=== PATIENT | female | born 1945 | race American Indian/Alaskan Native ===

== ENCOUNTER 2021-09-12 11:12 | Emergency (ER) | payer MEDICARE ==
[2021-09-12] MEDS ORDERED: ACETAMINOPHEN 500 MG TAB PO STA (11:42)
[2021-09-12] MEDS ORDERED: ASPIRIN 81 MG TAB CHEW PO ONE (11:42)
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
[2021-09-12 12:21] LABS: Hematocrit 39.5 % (30.3-42.9); Hemoglobin 12.8 gm/dl (10.1-14.3); Mean Corpuscular HGB Conc 32 % (30-34); Mean Corpuscular Volume 82 fl (79-97); Platelet Count 284 K/mm3 (140-440); Red Blood Count 4.82 M/mm3 (3.65-5.03); Red Cell Distribution Width 13.8 % (13.2-15.2)
--- NOTE | 2021-09-12 12:43 | XRay Report ---
XR chest routine 2V INDICATION / CLINICAL INFORMATION: chest pain. COMPARISON: None available. FINDINGS: SUPPORT DEVICES: None. HEART /PULMONARY VASCULATURE: No significant abnormality. LUNGS / PLEURA: No significant pulmonary or pleural abnormality. No pneumothorax. ADDITIONAL FINDINGS: No significant additional findings. IMPRESSION: 1. No acute findings. Signer Name: Link Faust MD Signed: 09/12/2021 12:38 PM Workstation Name: [id number]
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
[2021-09-12 13:12] LABS: Alanine Aminotransferase 13 units/L (7-56); Albumin 4.4 g/dL (3.9-5); Blood Urea Nitrogen 6 mg/dL (7-17); Calcium 9.3 mg/dL (8.4-10.2); Hemolysis Index 9
[2021-09-12] MEDS ORDERED: FAMOTIDINE 20 MG TAB PO ONE (13:22)
[2021-09-12 13:34] LABS: BUN/Creatinine Ratio 12
[2021-09-12 14:25] LABS: Band Neutrophils # (Manual) 0.2 K/mm3; Myelocytes # (Manual) 0.2 K/mm3; Total Cells Counted 100
[2021-09-12 14:31] LABS: RBC Morphology Normal
[2021-09-12 14:32] LABS: Platelet Estimate Consistent w Auto
[2021-09-12] MEDS ORDERED: POTASSIUM CHLORIDE ER 20 MEQ TAB PO ONE (14:57)
[2021-09-12 15:36] VITALS: BP 147/65
--- NOTE | 2021-09-13 12:59 | Electrocardiograph Report ---
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
== END 2021-09-12 15:40 | disposition home or self-care (01) ==
LOC: ED 11:12
DX: M25.512 Pain in left shoulder (principal); M54.2 Cervicalgia; K21.9 Gastro-esophageal reflux disease without esophagitis; E87.6 Hypokalemia; I10 Essential (primary) hypertension; Z88.5 Allergy status to narcotic agent; Z79.899 Other long term (current) drug therapy
CPT/HCPCS: 36415; 71046; 72040; 80053; 84484; 85007; 85025; 93005; 99284